=== PATIENT | female | born 1975 | race Caucasian/White ===

== ENCOUNTER → 2018-03-26 07:08 | Outpatient (CLI) | payer OTHER, SELFPAY ==
--- NOTE | 2018-03-26 | DI.US.S_ITS ---
PROCEDURE: US PELVIC COMPLETE INDICATIONS: DUB TECHNIQUE: Real-time scanning was performed of the pelvic organs, with image documentation. Additional endovaginal scanning was necessary due to incomplete visualization of the adnexal and endometrial structures by transabdominal scanning. COMPARISON: Located Within [facility], , PELVIC COMPLETE, 05/31/2015, 15:27. FINDINGS: Transabdominal scanning: Limited scanning through the kidneys shows no hydronephrosis. No pathologic free abdominal or pelvic fluid. Endovaginal scanning: Uterus: Uterus is normal in size at 12.3 x 6.1 x 6.5 cm. The endometrium measures 12.2 mm in combined thickness. 2 intramural fibroids present largest measuring 4.3 x 3.2 x 4.7 and a smaller 3.4 x 3.1 x 4.0 cm Ovaries: Normal ovaries bilaterally. No adnexal masses. IMPRESSION: 1. Increase in size of intramural fibroids largest measuring up to 4.7 cm. Previously visualized endometrial focus not seen on today's examination. 2. Normal ovaries. Dictated by: Miyk MARQUEZ Interpreted: Willie Isabel MD on 03/26/2018 at 8:59 Approved by: Sony Isabel M.D. on 03/26/2018 at 16:37
== END ==
PROVIDERS: Family Provider Family Medicine; PCP Family Medicine; Visit Provider Family Medicine
DX: N93.8 Other specified abnormal uterine and vaginal bleeding (principal); D25.1 Intramural leiomyoma of uterus
CPT/HCPCS: 76856

== ENCOUNTER → 2018-08-24 09:35 | Outpatient (CLI) | payer OTHER, SELFPAY ==
--- NOTE | 2018-08-24 | DI.MRI.S_ITS ---
PROCEDURE: MR PELVIS WO/W CON INDICATIONS: UTERINE FIBROIDS TECHNIQUE: Coronal HASTE, sagittal breath-hold T2 FSE; axial T1 FSE with and without fat saturation through the pelvis. Optional long- and short-axis uterine nonbreath-hold T2 FSE through the uterus. Sagittal or axial dynamic VIBE during administration of contrast. Post-contrast axial or coronal VIBE/2-D FLASH with fat saturation from the iliac crests to the symphysis. Optional diffusion weighted imaging and ADC may be performed. COMPARISON: [facility], US, US PELVIC COMPLETE, 03/26/2018, 7:24. [facility], US, PELVIC COMPLETE, 05/31/2015, 15:27. [facility], CR, L-SPINE 2-3 VIEWS, 12/05/2014, 16:19. FINDINGS: Image quality: Excellent. Uterus: Uterus is normal in size, anteverted. Endometrium is normal in thickness. Junctional zone is normal in thickness at 12 mm or less. Note is made of a fundal fibroid measuring up to 3.3 cm AP, 4.2 cm transverse and 3.3 cm craniocaudad. This is partially exophytic, and correlates with the prior most recent ultrasound without interval enlargement. Its measurements are slightly less than on the comparison ultrasound. A second submucosal fibroid is seen on the right, measuring up to 2.4 cm AP, 2.1 cm transverse and 2.2 cm craniocaudad. The endometrial lining shows no sign of mass, no endometrial fluid collection is seen. Several nabothian cysts are seen at the cervix. Adnexa: Both ovaries are normal in size, without suspicious cystic or solid lesions. Urinary system: Bladder wall is normal in thickness. Distal ureters are non distended. Urethra appears normal in morphology. Nodes and vessels: No pelvic or inguinal adenopathy by size criteria. Iliac vessels are normal in size. Bowel and peritoneum: No pathologic free pelvic fluid. Inferior colon and small bowel loops are normal in caliber. Soft tissues: No inguinal hernias. No findings of pelvic floor incompetence in the absence of provocation. Bones: Marrow demonstrates normal overall signal. IMPRESSION: The uterus is anteverted in the fundal fibroid is therefore quite anteriorly directed towards the midline abdominal wall. This may be palpable on physical examination. This fibroid and a smaller more inferior submucosal fibroid have not enlarged in size from reference to the prior most recent ultrasound scanning 03/26/18. No ovarian mass is present, and there is no evidence for presence of endometrioma or abnormal inflammation throughout the peritoneal space. No suspicion for underlying infection or malignant neoplasm. Dictated by: Forest Dang M.D. on 08/24/2018 at 12:58 Approved by: Forest Dang M.D. on 08/24/2018 at 13:05
== END ==
PROVIDERS: Family Provider Family Medicine; PCP Family Medicine; Visit Provider Family Medicine
DX: D25.0 Submucous leiomyoma of uterus (principal); D25.9 Leiomyoma of uterus, unspecified; N88.8 Other specified noninflammatory disorders of cervix uteri
CPT/HCPCS: 72197

== ENCOUNTER 2018-10-21 13:17 | Emergency (ER) | payer OTHER, SELFPAY ==
[2018-10-21 13:27] VITALS: BP 160/104; PULSE 95; RESP 20; TEMP 36.6; O2SAT 99; BMI 22.4
--- NOTE | 2018-10-21 15:12 | ED.FEMALEGU ---
HPI - Female Genitourinary <APOLLO Fish - Last Filed: 10/21/18 22:18> General Chief complaint: OB/Uterine Contractions Stated complaint: Abdominal pain Time Seen by Provider: 10/21/18 15:12 Source: patient Mode of arrival: ambulatory Limitations: no limitations History of Present Illness HPI Narrative: [age] year old female with history of uterine fibroids here for complaint of pelvic pain. She is currently awaiting as surgery for hysterectomy due to the fibroids with Dr. Turner. She reports she had. Earlier today when she was standing that she had worsening pain that lasted for about 2 min she states was pretty sharp. This pain reduced to her normal level of pelvic pain she states she does have some vaginal bleeding she reports her last menstrual. Was approximately 25 September. She denies any trauma to the abdomen. No urinary symptoms. No fevers no chills. She denies any stressors or relievers of her discomfort. MD Complaint: pelvic pain Related Data Home Medications Medication Instructions Recorded Confirmed ascorbic acid (vitamin C) 500 mg mg PO cap 04/01/18 09/29/18 capsule cetirizine 10 mg capsule 10 mg PO DAILY 04/01/18 09/29/18 cholecalciferol (vitamin D3) 1,000 1,000 unit PO DAILY 04/01/18 09/29/18 unit capsule multivitamin tablet 1 tab PO DAILY 04/01/18 09/29/18 estradiol [Yuvafem] 1 applic VAGINAL DIRECTED 10/21/18 10/21/18 sodium fluoride-pot nitrate 1 applic DENTAL DIRECTED 10/21/18 10/21/18 [Prevident 5000 Enamel Protect] Previous Rx's Medication Instructions Recorded oxycodone-acetaminophen 5 mg-325 1 tab PO Q4-6H PRN #30 tab 09/29/18 mg tablet ondansetron 4 mg PO BID-TID PRN #12 tab 10/21/18 Allergies Allergy/AdvReac Type Severity Reaction Status Date / Time No Known Drug Allergies Allergy Verified 09/29/18 14:50 Review of Systems <APOLLO Fsih - Last Filed: 10/21/18 22:18> Constitutional Denies chills, Denies fatigue, Denies fever(s), Denies lethargy and Denies weakness Eyes Denies change in vision, Denies eye discharge, Denies irritation and Denies loss of vision ENT Ears, Nose, Mouth, and Throat: Denies change in voice, Denies neck pain and Denies sore throat Cardiovascular Denies dyspnea and Denies dyspnea on exertion Respiratory Denies cough, Denies dyspnea, Denies dyspnea on exertion and Denies wheezing Gastrointestinal Gastrointestinal: Denies abdominal pain, Denies change in bowel habits, Denies diarrhea, Denies nausea and Denies vomiting Genitourinary Comments: Continued pelvic pain Musculoskeletal Denies neck pain Integumentary/Breasts Denies pruritus, Denies erythema, Denies rash and Denies wounds Neurologic Denies confusion, Denies loss of vision and Denies weakness Psychiatric Denies anxiety, Denies confusion, Denies depression, Denies homicidal ideation and Denies suicidal ideation Endocrine Denies fatigue and Denies flushing Hematologic/Lymphatic Denies easy bruising Allergic/Immunologic Denies wheezing Exam <APOLLO Fish - Last Filed: 10/21/18 22:18> Initial Vital Signs Initial Vital Signs: Vital Signs Temperature 97.8 F 10/21/18 13:27 Pulse Rate 95 H 10/21/18 13:27 Respiratory Rate 20 10/21/18 13:27 Blood Pressure 160/104 H 10/21/18 13:27 Pulse Oximetry 99 10/21/18 13:27 Const General: cooperative and well developed Nutritional Appearance: well nourished Orientation: alert, awake, oriented x3 and not confused [facility] [place] Mouth: oral mucosae normal and moist mucous membranes Eyes Conjunctivae: conjunctivae normal Sclera: sclerae normal Pupils: PERRL EOM: EOM intact bilaterally Chest Chest: normal inspection of the chest Resp Effort & Inspection: normal respiratory effort, able to speak in complete sentences, no respiratory distress and no use of accessory muscles Auscultation: clear to auscultation bilaterally, no rales, no rhonchi and no wheezes Cardio Rate: regular rate Rhythm: regular rhythm Heart Sounds: no click, no gallops, no murmurs and no rubs Pulses: normal peripheral pulses GI Inspection: non-distended Palpation: soft, no hepatosplenomegaly, No guarding, No pulsatile mass and tender (Tenderness to bilateral pelvic region) Auscultation: normal bowel sounds General: No CVA tenderness Skin General: no rashes or lesions noted, No jaundice and No petechiae Neuro General: alert, oriented x3, gait normal and no focal motor deficits Speech: speech normal <Berta Greco DO - Last Filed: 10/24/18 09:14> Initial Vital Signs Initial Vital Signs: Vital Signs Temperature 97.8 F 10/21/18 13:27 Pulse Rate 95 H 10/21/18 13:27 Respiratory Rate 20 10/21/18 13:27 Blood Pressure 160/104 H 10/21/18 13:27 Pulse Oximetry 99 10/21/18 13:27 Course <APOLLO Fish - Last Filed: 10/21/18 22:18> Orders Ordered: Discontinued Medications Hydromorphone HCl (Dilaudid) 0.5 mg IV NOW ONE Stop: 10/21/18 15:43 Last Admin: 10/21/18 16:03 Dose: 0.5 mg Sodium Chloride (Normal Saline 0.9%) 1,000 mls @ 1,000 mls/hr IV BOLUS ONE Stop: 10/21/18 16:41 Last Infusion: 10/21/18 17:20 Dose: 0 mls/hr Admin: 10/21/18 16:07 Dose: 1,000 mls/hr Ondansetron HCl (Zofran) 4 mg IV NOW ONE Stop: 10/21/18 15:43 Last Admin: 10/21/18 16:01 Dose: 4 mg Vital Signs - 8 hr 10/21/18 17:19 10/21/18 18:42 Temperature 98.1 F Pulse Rate 77 97 H Respiratory Rate 20 18 Blood Pressure 133/83 Blood Pressure [Right Arm] 124/71 Pulse Oximetry 100 98 <Berta Greco DO - Last Filed: 10/24/18 09:14> Orders Ordered: Discontinued Medications Hydromorphone HCl (Dilaudid) 0.5 mg IV NOW ONE Stop: 10/21/18 15:43 Last Admin: 10/21/18 16:03 Dose: 0.5 mg Sodium Chloride (Normal Saline 0.9%) 1,000 mls @ 1,000 mls/hr IV BOLUS ONE Stop: 10/21/18 16:41 Last Infusion: 10/21/18 17:20 Dose: 0 mls/hr Admin: 10/21/18 16:07 Dose: 1,000 mls/hr Ondansetron HCl (Zofran) 4 mg IV NOW ONE Stop: 10/21/18 15:43 Last Admin: 10/21/18 16:01 Dose: 4 mg Vital Signs - 8 hr 10/21/18 17:19 10/21/18 18:42 Temperature 98.1 F Pulse Rate 77 97 H Respiratory Rate 20 18 Blood Pressure 133/83 Blood Pressure [Right Arm] 124/71 Pulse Oximetry 100 98 MDM - Female Genitourinary <APOLLO Fish - Last Filed: 10/21/18 22:18> Lab Data Result diagrams: 10/21/18 15:37 10/21/18 15:37 Lab Results 10/21/18 10/21/18 Range/Units 15:37 15:37 WBC 8.6 (4.5-11.0) X10^3/uL RBC 4.74 (4.0-5.2) X10^6/uL Hgb 14.6 (12.0-16.0) g/dL Hct 42.3 (36-46) % MCV 89.2 (80-100) fL MCH 30.8 (26-34) PG MCHC 34.5 (30-36) % RDW 12.7 (11.6-14.8) % Plt Count 232 (150-400) X10^3/uL Neut % (Auto) 68.2 (50-75) % Lymph % (Auto) 25.0 (25-40) % [place] % (Auto) 3.8 (3-14) % Eos % (Auto) 1.8 L (2-4) % Baso % (Auto) 1.2 (0-2) % Neut # (Auto) 5800 (3481-2225) /uL Sodium 143 (137-145) mmol/L Potassium 3.8 (3.4-5.1) mmol/L Chloride 107 (98-107) mmol/L Carbon Dioxide 21 L (22-32) mmol/L BUN 18 H (7-17) mg/dL Creatinine 0.70 (0.52-1.04) mg/dL Estimated GFR > 60.0 (>60) mL/min BUN/Creatinine Ratio 25.7 H (6-22) Glucose 90 (70-100) mg/dL Calcium 9.5 (8.4-10.2) mg/dL Total Bilirubin 0.5 (0.2-1.3) mg/dL AST 22 (14-36) IU/L ALT 31 (9-52) IU/L Alkaline Phosphatase 49 (38-126) U/L Total Protein 7.9 (6.3-8.2) g/dL Albumin 4.9 (3.5-5.0) g/dL Globulin 3.0 (1.7-4.1) g/dL Albumin/Globulin Ratio 1.6 (1.0-2.8) Lipase 99 (23-300) U/L Point of Care Testing Test Results Negative Urine Dip Bedside Urine Glucose Negative Bedside Urine Bilirubin - Negative Bedside Urine Ketone - Negative Urine Specific [place] 1.015 Bedside Urine Occult Blood +/- Bedside Urine pH 6.0 Bedside Urine Protein - Negative Bedside Urine Urobilinogen - Negative Bedside Urine Nitrite - Negative Bedside Urine Leukocytes - Negative Esterase Imaging Data pelvic us: Radiologist's impression: [address] [address] Ultrasound Report Signed Patient: Maricel Johnson MR#: [id number] : 1975 Acct:[id number] Age/Sex: 43 / F Date of Service: 10/21/18 Loc: ED Accession Number: [id number] Procedure: US pelvic complete Ordering Provider: Derek Kinney PROCEDURE: US PELVIC COMPLETE INDICATIONS: Bilateral pelvic pain TECHNIQUE: Real-time scanning was performed of the pelvic organs, with image documentation. Additional endovaginal scanning was necessary due to incomplete visualization of the adnexal and endometrial structures by transabdominal scanning. COMPARISON: [facility], , MR PELVIS WO/W CON, 08/24/2018, 10:25. [facility], US PELVIC COMPLETE, 09/29/2018, 15:43. [facility], US PELVIC COMPLETE, 03/26/2018, 7:24. FINDINGS: Transabdominal scanning: Limited scanning through the kidneys shows no hydronephrosis. No pathologic free abdominal or pelvic fluid. Endovaginal scanning: Uterus: Uterus is anteverted and enlarged measuring 15.3 x 5.0 x 9.5 cm. The endometrium measures 7 mm in combined thickness. There is a focal infiltrate 3.6 x 5.5 cm intramural fibroid in the superior fundus anterior and midline. There is a 2.5 x 1.8 x 2.3 cm intramural fibroid in the right anterior uterine segment. Ovaries: Right ovary measures 3.4 x 1.7 x 2.7 cm. Left ovary measures 3.0 x 1.7 x 2.7 cm. On Doppler ultrasound, there is no definitive flow to the right ovary. There is normal left artery to the left ovary. IMPRESSION: 1. Right ovary is normal in size and echotexture. On Doppler ultrasound, vascularity cannot be definitively identified in the right ovary. Cannot rule out right ovarian torsion. 2. Left ovary is normal. 3. Myomatous uterus with 2 intramural uterine fibroids. The result was discussed with Derek Kinney in ER on 10/21/2018a at 1750 hours. Dictated by: Molina Salgado M.D. on 10/21/2018 at 17:28 Approved by: Molina Salgado M.D. on 10/21/2018 at 18:12 MDM Narrative Medical decision making narrative: Pelvic ultrasound was obtained and shows fibroids to the uterine area. Blood flow was not seen into the right ovary however ovary was not enlarged. Discussed case with Dr. Turner who does feel that this is not ovarian torsion due to over a not being enlarged feels that this is continued pain due to the uterine fibroid. She will follow up with patient. Dr. Turner is trying to move his surgery scheduled up. Currently prescribed pain management regimen as needed for discomfort. Follow with solar hot water installer as scheduled. For any worsening symptoms return emergency room. <Berta Greco, - Last Filed: 10/24/18 09:14> Lab Data Lab Results 10/21/18 10/21/18 Range/Units 15:37 15:37 WBC 8.6 (4.5-11.0) X10^3/uL RBC 4.74 (4.0-5.2) X10^6/uL Hgb 14.6 (12.0-16.0) g/dL Hct 42.3 (36-46) % MCV 89.2 (80-100) fL MCH 30.8 (26-34) PG MCHC 34.5 (30-36) % RDW 12.7 (11.6-14.8) % Plt Count 232 (150-400) X10^3/uL Neut % (Auto) 68.2 (50-75) % Lymph % (Auto) 25.0 (25-40) % [place] % (Auto) 3.8 (3-14) % Eos % (Auto) 1.8 L (2-4) % Baso % (Auto) 1.2 (0-2) % Neut # (Auto) 5800 (9641-8318) /uL Sodium 143 (137-145) mmol/L Potassium 3.8 (3.4-5.1) mmol/L Chloride 107 (98-107) mmol/L Carbon Dioxide 21 L (22-32) mmol/L BUN 18 H (7-17) mg/dL Creatinine 0.70 (0.52-1.04) mg/dL Estimated GFR > 60.0 (>60) mL/min BUN/Creatinine Ratio 25.7 H (6-22) Glucose 90 (70-100) mg/dL Calcium 9.5 (8.4-10.2) mg/dL Total Bilirubin 0.5 (0.2-1.3) mg/dL AST 22 (14-36) IU/L ALT 31 (9-52) IU/L Alkaline Phosphatase 49 (38-126) U/L Total Protein 7.9 (6.3-8.2) g/dL Albumin 4.9 (3.5-5.0) g/dL Globulin 3.0 (1.7-4.1) g/dL Albumin/Globulin Ratio 1.6 (1.0-2.8) Lipase 99 (23-300) U/L Point of Care Testing Test Results Negative Urine Dip Bedside Urine Glucose Negative Bedside Urine Bilirubin - Negative Bedside Urine Ketone - Negative Urine Specific [place] 1.015 Bedside Urine Occult Blood +/- Bedside Urine pH 6.0 Bedside Urine Protein - Negative Bedside Urine Urobilinogen - Negative Bedside Urine Nitrite - Negative Bedside Urine Leukocytes - Negative Esterase Discharge Plan Departure Patient Disposition: Home Clinical Impression: Uterine fibroid Discharge Date/Time: 10/21/18 18:42 Interventions: ED Discharge Assessment Last Done: 10/21/18 18:42 Instructions: DI for Uterine Fibroids Activity Restrictions/Additional Instructions: Laboratory results today were unremarkable. Ultrasound shows uterine fibroids as before. Recommend following up with solar hot water installer as scheduled for surgery. Use currently prescribed pain management regimen as needed for any discomfort. For any worsening symptoms return to the emergency room. Prescriptions: New ondansetron 4 mg tablet,disintegrating 4 mg PO BID-TID PRN (Reason: nausea and vomiting) Qty: 12 RF: 0 No Action multivitamin [Daily Multi-Vitamin] tablet 1 tab PO DAILY RF: 0 cholecalciferol (vitamin D3) 1,000 unit capsule 1,000 unit PO DAILY RF: 0 cetirizine [Zyrtec] 10 mg capsule 10 mg PO DAILY RF: 0 ascorbic acid (vitamin C) 500 mg capsule PO RF: 0 oxycodone-acetaminophen [Percocet] 5-325 mg tablet 1 tab PO Q4-6H PRN (Reason: pain) Qty: 30 RF: 0 sodium fluoride-pot nitrate [Prevident 5000 Enamel Protect] 1.1-5 % paste 1 applic Dental DIRECTED RF: 0 estradiol [Yuvafem] 10 mcg tablet 1 applic Vaginal DIRECTED RF: 0 Referrals: Nataliia Turner MD [Physician] - Jocelin Crooks MD [Primary Care Provider] - <Berta Greco DO - Last Filed: 10/24/18 09:14> Cosign ED Attending Cosignature Attestation: I was immediately available in the department for consultation. This documentation has been reviewed and I agree with assessment and plan. Supervised by Berta Greco DO
--- NOTE | 2018-10-21 15:42 | DI.US.S_ITS ---
PROCEDURE: US PELVIC COMPLETE INDICATIONS: Bilateral pelvic pain TECHNIQUE: Real-time scanning was performed of the pelvic organs, with image documentation. Additional endovaginal scanning was necessary due to incomplete visualization of the adnexal and endometrial structures by transabdominal scanning. COMPARISON: [facility], MR, MR PELVIS WO/W CON, 08/24/2018, 10:25. [facility], US, US PELVIC COMPLETE, 09/29/2018, 15:43. [facility], US, US PELVIC COMPLETE, 03/26/2018, 7:24. FINDINGS: Transabdominal scanning: Limited scanning through the kidneys shows no hydronephrosis. No pathologic free abdominal or pelvic fluid. Endovaginal scanning: Uterus: Uterus is anteverted and enlarged measuring 15.3 x 5.0 x 9.5 cm. The endometrium measures 7 mm in combined thickness. There is a focal infiltrate 3.6 x 5.5 cm intramural fibroid in the superior fundus anterior and midline. There is a 2.5 x 1.8 x 2.3 cm intramural fibroid in the right anterior uterine segment. Ovaries: Right ovary measures 3.4 x 1.7 x 2.7 cm. Left ovary measures 3.0 x 1.7 x 2.7 cm. On Doppler ultrasound, there is no definitive flow to the right ovary. There is normal left artery to the left ovary. IMPRESSION: 1. Right ovary is normal in size and echotexture. On Doppler ultrasound, vascularity cannot be definitively identified in the right ovary. Cannot rule out right ovarian torsion. 2. Left ovary is normal. 3. Myomatous uterus with 2 intramural uterine fibroids. The result was discussed with Derek Kinney in ER on 10/21/2018a at 1750 hours. Dictated by: Molina Salgado M.D. on 10/21/2018 at 17:28 Approved by: Molina Salgado M.D. on 10/21/2018 at 18:12
[2018-10-21 15:48] LABS: Add Manual Diff / Slide Review NO; Basophils Percent Auto 1.2 % (0-2); Eosinophils Percent Auto 1.8 % (2-4); Hematocrit 42.3 % (36-46); Hemoglobin 14.6 g/dL (12.0-16.0); Mean Corpuscular HGB Conc 34.5 % (30-36); Mean Corpuscular Hemoglobin 30.8 PG (26-34); Mean Corpuscular Volume 89.2 fL (80-100); Monocytes Percent Auto 3.8 % (3-14); Neutrophils Absolute Auto 5800 /uL (1500-7000); Neutrophils Percent Auto 68.2 % (50-75); Platelet Count 232 X10^3/uL (150-400); Red Blood Cell Count 4.74 X10^6/uL (4.0-5.2); Red Cell Distribution Width 12.7 % (11.6-14.8); White Blood Cell Count 8.6 X10^3/uL (4.5-11.0)
[2018-10-21 15:55] LABS: Alanine Aminotransferase 31 IU/L (9-52); Albumin 4.9 g/dL (3.5-5.0); Albumin Globulin Ratio 1.6 (1.0-2.8); Alkaline Phosphatase 49 U/L (38-126); Aspartate Aminotransferase 22 IU/L (14-36); BUN Creatinine Ratio 25.7 (6-22); Bilirubin Total 0.5 mg/dL (0.2-1.3); Blood Urea Nitrogen 18 mg/dL (7-17); Calcium 9.5 mg/dL (8.4-10.2); Carbon Dioxide 21 mmol/L (22-32); Chloride 107 mmol/L (98-107); Estimated Glomerular Filt Rate > 60.0 mL/min (>60); Glucose 90 mg/dL (70-100); HEMOLYSIS 18 (0-50); Lipase 99 U/L (23-300); Potassium 3.8 mmol/L (3.4-5.1); Sodium 143 mmol/L (137-145); Total Protein 7.9 g/dL (6.3-8.2)
[2018-10-21] MEDS: ONDANSETRON 4 MG/2 ML INJ IV (16:01)
[2018-10-21] MEDS: HYDROMORPHONE 1 MG INJ 0.5 MG IV (16:03)
[2018-10-21] MEDS: SODIUM CHLORIDE 0.9% 1,000 ML 1000 ML IV (16:07)
[2018-10-21 17:19] VITALS: BP 124/71; PULSE 77; RESP 20; O2SAT 100
--- NOTE | 2018-10-21 18:25 | ED_ITS ---
HPI - Female Genitourinary <APOLLO Fish - Last Filed: 10/21/18 22:18> General Chief complaint: OB/Uterine Contractions Stated complaint: Abdominal pain Time Seen by Provider: 10/21/18 15:12 Source: patient Mode of arrival: ambulatory Limitations: no limitations History of Present Illness HPI Narrative: [age] year old female with history of uterine fibroids here for complaint of pelvic pain. She is currently awaiting as surgery for hysterectomy due to the fibroids with Dr. Turner. She reports she had. Earlier today when she was standing that she had worsening pain that lasted for about 2 min she states was pretty sharp. This pain reduced to her normal level of pelvic pain she states she does have some vaginal bleeding she reports her last menstrual. Was approximately 25 September. She denies any trauma to the abdomen. No urinary symptoms. No fevers no chills. She denies any stressors or relievers of her discomfort. MD Complaint: pelvic pain Related Data Home Medications Medication Instructions Recorded Confirmed ascorbic acid (vitamin C) 500 mg mg PO cap 04/01/18 09/29/18 capsule cetirizine 10 mg capsule 10 mg PO DAILY 04/01/18 09/29/18 cholecalciferol (vitamin D3) 1,000 1,000 unit PO DAILY 04/01/18 09/29/18 unit capsule multivitamin tablet 1 tab PO DAILY 04/01/18 09/29/18 estradiol [Yuvafem] 1 applic VAGINAL DIRECTED 10/21/18 10/21/18 sodium fluoride-pot nitrate 1 applic DENTAL DIRECTED 10/21/18 10/21/18 [Prevident 5000 Enamel Protect] Previous Rx's Medication Instructions Recorded oxycodone-acetaminophen 5 mg-325 1 tab PO Q4-6H PRN #30 tab 09/29/18 mg tablet ondansetron 4 mg PO BID-TID PRN #12 tab 10/21/18 Allergies Allergy/AdvReac Type Severity Reaction Status Date / Time No Known Drug Allergies Allergy Verified 09/29/18 14:50 Review of Systems <APOLLO Fish - Last Filed: 10/21/18 22:18> Constitutional Denies chills, Denies fatigue, Denies fever(s), Denies lethargy and Denies weakness Eyes Denies change in vision, Denies eye discharge, Denies irritation and Denies loss of vision ENT Ears, Nose, Mouth, and Throat: Denies change in voice, Denies neck pain and Denies sore throat Cardiovascular Denies dyspnea and Denies dyspnea on exertion Respiratory Denies cough, Denies dyspnea, Denies dyspnea on exertion and Denies wheezing Gastrointestinal Gastrointestinal: Denies abdominal pain, Denies change in bowel habits, Denies diarrhea, Denies nausea and Denies vomiting Genitourinary Comments: Continued pelvic pain Musculoskeletal Denies neck pain Integumentary/Breasts Denies pruritus, Denies erythema, Denies rash and Denies wounds Neurologic Denies confusion, Denies loss of vision and Denies weakness Psychiatric Denies anxiety, Denies confusion, Denies depression, Denies homicidal ideation and Denies suicidal ideation Endocrine Denies fatigue and Denies flushing Hematologic/Lymphatic Denies easy bruising Allergic/Immunologic Denies wheezing Exam <APOLLO Fish - Last Filed: 10/21/18 22:18> Initial Vital Signs Initial Vital Signs: Vital Signs Temperature 97.8 F 10/21/18 13:27 Pulse Rate 95 H 10/21/18 13:27 Respiratory Rate 20 10/21/18 13:27 Blood Pressure 160/104 H 10/21/18 13:27 Pulse Oximetry 99 10/21/18 13:27 Const General: cooperative and well developed Nutritional Appearance: well nourished Orientation: alert, awake, oriented x3 and not confused [facility] Mouth: oral mucosae normal and moist mucous membranes Eyes Conjunctivae: conjunctivae normal Sclera: sclerae normal Pupils: PERRL EOM: EOM intact bilaterally Chest Chest: normal inspection of the chest Resp Effort & Inspection: normal respiratory effort, able to speak in complete sentences, no respiratory distress and no use of accessory muscles Auscultation: clear to auscultation bilaterally, no rales, no rhonchi and no wheezes Cardio Rate: regular rate Rhythm: regular rhythm Heart Sounds: no click, no gallops, no murmurs and no rubs Pulses: normal peripheral pulses GI Inspection: non-distended Palpation: soft, no hepatosplenomegaly, No guarding, No pulsatile mass and tender (Tenderness to bilateral pelvic region) Auscultation: normal bowel sounds General: No CVA tenderness Skin General: no rashes or lesions noted, No jaundice and No petechiae Neuro General: alert, oriented x3, gait normal and no focal motor deficits Speech: speech normal <Berta Greco DO - Last Filed: 10/24/18 09:14> Initial Vital Signs Initial Vital Signs: Vital Signs Temperature 97.8 F 10/21/18 13:27 Pulse Rate 95 H 10/21/18 13:27 Respiratory Rate 20 10/21/18 13:27 Blood Pressure 160/104 H 10/21/18 13:27 Pulse Oximetry 99 10/21/18 13:27 Course <APOLLO Fish - Last Filed: 10/21/18 22:18> Orders Ordered: Discontinued Medications Hydromorphone HCl (Dilaudid) 0.5 mg IV NOW ONE Stop: 10/21/18 15:43 Last Admin: 10/21/18 16:03 Dose: 0.5 mg Sodium Chloride (Normal Saline 0.9%) 1,000 mls @ 1,000 mls/hr IV BOLUS ONE Stop: 10/21/18 16:41 Last Infusion: 10/21/18 17:20 Dose: 0 mls/hr Admin: 10/21/18 16:07 Dose: 1,000 mls/hr Ondansetron HCl (Zofran) 4 mg IV NOW ONE Stop: 10/21/18 15:43 Last Admin: 10/21/18 16:01 Dose: 4 mg Vital Signs - 8 hr 10/21/18 17:19 10/21/18 18:42 Temperature 98.1 F Pulse Rate 77 97 H Respiratory Rate 20 18 Blood Pressure 133/83 Blood Pressure [Right Arm] 124/71 Pulse Oximetry 100 98 <Berta Greco DO - Last Filed: 10/24/18 09:14> Orders Ordered: Discontinued Medications Hydromorphone HCl (Dilaudid) 0.5 mg IV NOW ONE Stop: 10/21/18 15:43 Last Admin: 10/21/18 16:03 Dose: 0.5 mg Sodium Chloride (Normal Saline 0.9%) 1,000 mls @ 1,000 mls/hr IV BOLUS ONE Stop: 10/21/18 16:41 Last Infusion: 10/21/18 17:20 Dose: 0 mls/hr Admin: 10/21/18 16:07 Dose: 1,000 mls/hr Ondansetron HCl (Zofran) 4 mg IV NOW ONE Stop: 10/21/18 15:43 Last Admin: 10/21/18 16:01 Dose: 4 mg Vital Signs - 8 hr 10/21/18 17:19 10/21/18 18:42 Temperature 98.1 F Pulse Rate 77 97 H Respiratory Rate 20 18 Blood Pressure 133/83 Blood Pressure [Right Arm] 124/71 Pulse Oximetry 100 98 MDM - Female Genitourinary <APOLLO Fish - Last Filed: 10/21/18 22:18> Lab Data Result diagrams: 10/21/18 15:37 10/21/18 15:37 Lab Results 10/21/18 10/21/18 Range/Units 15:37 15:37 WBC 8.6 (4.5-11.0) X10^3/uL RBC 4.74 (4.0-5.2) X10^6/uL Hgb 14.6 (12.0-16.0) g/dL Hct 42.3 (36-46) % MCV 89.2 (80-100) fL MCH 30.8 (26-34) PG MCHC 34.5 (30-36) % RDW 12.7 (11.6-14.8) % Plt Count 232 (150-400) X10^3/uL Neut % (Auto) 68.2 (50-75) % Lymph % (Auto) 25.0 (25-40) % Delta % (Auto) 3.8 (3-14) % Eos % (Auto) 1.8 L (2-4) % Baso % (Auto) 1.2 (0-2) % Neut # (Auto) 5800 (7978-7891) /uL Sodium 143 (137-145) mmol/L Potassium 3.8 (3.4-5.1) mmol/L Chloride 107 (98-107) mmol/L Carbon Dioxide 21 L (22-32) mmol/L BUN 18 H (7-17) mg/dL Creatinine 0.70 (0.52-1.04) mg/dL Estimated GFR > 60.0 (>60) mL/min BUN/Creatinine Ratio 25.7 H (6-22) Glucose 90 (70-100) mg/dL Calcium 9.5 (8.4-10.2) mg/dL Total Bilirubin 0.5 (0.2-1.3) mg/dL AST 22 (14-36) IU/L ALT 31 (9-52) IU/L Alkaline Phosphatase 49 (38-126) U/L Total Protein 7.9 (6.3-8.2) g/dL Albumin 4.9 (3.5-5.0) g/dL Globulin 3.0 (1.7-4.1) g/dL Albumin/Globulin Ratio 1.6 (1.0-2.8) Lipase 99 (23-300) U/L Point of Care Testing Test Results Negative Urine Dip Bedside Urine Glucose Negative Bedside Urine Bilirubin - Negative Bedside Urine Ketone - Negative Urine Specific Schneider 1.015 Bedside Urine Occult Blood +/- Bedside Urine pH 6.0 Bedside Urine Protein - Negative Bedside Urine Urobilinogen - Negative Bedside Urine Nitrite - Negative Bedside Urine Leukocytes - Negative Esterase Imaging Data pelvic us: Radiologist's impression: [address] [address] Ultrasound Report Signed Patient: Maricel Johnson MR#: [id number] : 1975 Acct:[id number] Age/Sex: 43 / F Date of Service: 10/21/18 Loc: ED Accession Number: [id number] Procedure: US pelvic complete Ordering Provider: Derek Kinney PROCEDURE: US PELVIC COMPLETE INDICATIONS: Bilateral pelvic pain TECHNIQUE: Real-time scanning was performed of the pelvic organs, with image documentation. Additional endovaginal scanning was necessary due to incomplete visualization of the adnexal and endometrial structures by transabdominal scanning. COMPARISON: [facility], , MR PELVIS WO/W CON, 08/24/2018, 10:25. [facility], US PELVIC COMPLETE, 09/29/2018, 15:43. [facility], US PELVIC COMPLETE, 03/26/2018, 7:24. FINDINGS: Transabdominal scanning: Limited scanning through the kidneys shows no hydronephrosis. No pathologic free abdominal or pelvic fluid. Endovaginal scanning: Uterus: Uterus is anteverted and enlarged measuring 15.3 x 5.0 x 9.5 cm. The endometrium measures 7 mm in combined thickness. There is a focal infiltrate 3.6 x 5.5 cm intramural fibroid in the superior fundus anterior and midline. There is a 2.5 x 1.8 x 2.3 cm intramural fibroid in the right anterior uterine segment. Ovaries: Right ovary measures 3.4 x 1.7 x 2.7 cm. Left ovary measures 3.0 x 1.7 x 2.7 cm. On Doppler ultrasound, there is no definitive flow to the right ovary. There is normal left artery to the left ovary. IMPRESSION: 1. Right ovary is normal in size and echotexture. On Doppler ultrasound, vascularity cannot be definitively identified in the right ovary. Cannot rule out right ovarian torsion. 2. Left ovary is normal. 3. Myomatous uterus with 2 intramural uterine fibroids. The result was discussed with Derek Kinney in ER on 10/21/2018a at 1750 hours. Dictated by: Molina Salgado M.D. on 10/21/2018 at 17:28 Approved by: Molina Salgado M.D. on 10/21/2018 at 18:12 MDM Narrative Medical decision making narrative: Pelvic ultrasound was obtained and shows fibroids to the uterine area. Blood flow was not seen into the right ovary however ovary was not enlarged. Discussed case with Dr. Turner who does feel that this is not ovarian torsion due to over a not being enlarged feels that this is continued pain due to the uterine fibroid. She will follow up with patient. Dr. Turner is trying to move his surgery scheduled up. Currently prescribed pain management regimen as needed for discomfort. Follow with case checker as scheduled. For any worsening symptoms return emergency room. <Berta Greco, - Last Filed: 10/24/18 09:14> Lab Data Lab Results 10/21/18 10/21/18 Range/Units 15:37 15:37 WBC 8.6 (4.5-11.0) X10^3/uL RBC 4.74 (4.0-5.2) X10^6/uL Hgb 14.6 (12.0-16.0) g/dL Hct 42.3 (36-46) % MCV 89.2 (80-100) fL MCH 30.8 (26-34) PG MCHC 34.5 (30-36) % RDW 12.7 (11.6-14.8) % Plt Count 232 (150-400) X10^3/uL Neut % (Auto) 68.2 (50-75) % Lymph % (Auto) 25.0 (25-40) % Delta % (Auto) 3.8 (3-14) % Eos % (Auto) 1.8 L (2-4) % Baso % (Auto) 1.2 (0-2) % Neut # (Auto) 5800 (0032-6191) /uL Sodium 143 (137-145) mmol/L Potassium 3.8 (3.4-5.1) mmol/L Chloride 107 (98-107) mmol/L Carbon Dioxide 21 L (22-32) mmol/L BUN 18 H (7-17) mg/dL Creatinine 0.70 (0.52-1.04) mg/dL Estimated GFR > 60.0 (>60) mL/min BUN/Creatinine Ratio 25.7 H (6-22) Glucose 90 (70-100) mg/dL Calcium 9.5 (8.4-10.2) mg/dL Total Bilirubin 0.5 (0.2-1.3) mg/dL AST 22 (14-36) IU/L ALT 31 (9-52) IU/L Alkaline Phosphatase 49 (38-126) U/L Total Protein 7.9 (6.3-8.2) g/dL Albumin 4.9 (3.5-5.0) g/dL Globulin 3.0 (1.7-4.1) g/dL Albumin/Globulin Ratio 1.6 (1.0-2.8) Lipase 99 (23-300) U/L Point of Care Testing Test Results Negative Urine Dip Bedside Urine Glucose Negative Bedside Urine Bilirubin - Negative Bedside Urine Ketone - Negative Urine Specific Schneider 1.015 Bedside Urine Occult Blood +/- Bedside Urine pH 6.0 Bedside Urine Protein - Negative Bedside Urine Urobilinogen - Negative Bedside Urine Nitrite - Negative Bedside Urine Leukocytes - Negative Esterase Discharge Plan Departure Patient Disposition: Home Clinical Impression: Uterine fibroid Discharge Date/Time: 10/21/18 18:42 Interventions: ED Discharge Assessment Last Done: 10/21/18 18:42 Instructions: DI for Uterine Fibroids Activity Restrictions/Additional Instructions: Laboratory results today were unremarkable. Ultrasound shows uterine fibroids as before. Recommend following up with case checker as scheduled for surgery. Use currently prescribed pain management regimen as needed for any discomfort. For any worsening symptoms return to the emergency room. Prescriptions: New ondansetron 4 mg tablet,disintegrating 4 mg PO BID-TID PRN (Reason: nausea and vomiting) Qty: 12 RF: 0 No Action multivitamin [Daily Multi-Vitamin] tablet 1 tab PO DAILY RF: 0 cholecalciferol (vitamin D3) 1,000 unit capsule 1,000 unit PO DAILY RF: 0 cetirizine [Zyrtec] 10 mg capsule 10 mg PO DAILY RF: 0 ascorbic acid (vitamin C) 500 mg capsule PO RF: 0 oxycodone-acetaminophen [Percocet] 5-325 mg tablet 1 tab PO Q4-6H PRN (Reason: pain) Qty: 30 RF: 0 sodium fluoride-pot nitrate [Prevident 5000 Enamel Protect] 1.1-5 % paste 1 applic Dental DIRECTED RF: 0 estradiol [Yuvafem] 10 mcg tablet 1 applic Vaginal DIRECTED RF: 0 Referrals: Nataliia Truner MD [Physician] - Jocelin Crooks MD [Primary Care Provider] - <Berta Greco DO - Last Filed: 10/24/18 09:14> Cosign ED Attending Cosignature Attestation: I was immediately available in the department for consultation. This documentation has been reviewed and I agree with assessment and plan. Supervised by Berta Greco DO
[2018-10-21 18:42] VITALS: BP 133/83; PULSE 97; RESP 18; TEMP 36.7; O2SAT 98
== END 2018-10-21 18:42 | disposition home or self-care (01) ==
PROVIDERS: Emergency Provider Nurse Practitioner Family; Family Provider Family Medicine; PCP Family Medicine
DX: D25.9 Leiomyoma of uterus, unspecified (principal)
CPT/HCPCS: 36591; 76830; 76856; 80053; 81003; 81025; 83690; 85025; 96361; 96374; 96375; 99283; 99284; J1170; J2405

== ENCOUNTER 2018-11-09 14:26 | Observation (INO) | payer OTHER, SELFPAY ==
[2018-11-04 09:24] VITALS: BMI 22.6
[2018-11-07 13:22] VITALS: BMI 22.6
[2018-11-08] VITALS (18 sets, daily range): BP systolic 106–147; BP diastolic 68–93; PULSE 82–109; RESP 8–18; TEMP 36.4–37.3; O2SAT 94–100; BMI 22.6
--- NOTE | 2018-11-08 | PATH_ITS ---
[facility] Accession Number: [id number] . 01 Material submitted: . UTERUS AND TUBES . 02 Diagnosis: Uterus And Bilateral Fallopian Tubes, Supracervical Hysterectomy And Bilateral Salpingectomy: Multiple leiomyomata, up to 1.8 cm in greatest dimension. Secretory endometrium with no diagnostic abnormality. Adenomyosis. One fallopian tube with no diagnostic abnormality; please see comment. Negative for malignancy. I11/11/2018 . 02 Comment: Gross examination of the specimen identified two tubular structures which were submitted in block A6 and blocks A7/A8 respectively. The tissue submitted in blocks A7 and A8 show unremarkable fimbriated fallopian tube. The tubal structure submitted in block A6 is comprised of smooth muscle and spiral vessels suggestive of a ligamnet; no tubal epithelium is identified despite numerous deeper levels and a total of 24 cross-sections examined. The gross specimen is re-examined by Dr. Bronson Wall on 11/10/18, and no other tubal structures are identified in the morcellated specimen to submit for histologic evaluation. . 02 Electronically signed: . Bronson Wall MD, PhD, Pathologist NPI- [id number] . 01 Gross description: . Received in formalin, labeled uterus and tubes, is a morcellated uterus (205 grams, 15.5 x 13.0 x 5.5 cm in aggregate) and two apparent segments of fallopian tubes (segment #1: length-1.0 cm, diameter-0.8 cm; segment #2: length-2.5 cm, diameter-0.5 cm) with a possible fimbriae identified on segment #2. The ovaries are absent. The tissue cannot be oriented and the endometrium and myometrium cannot be grossly measured. The parenchyma is rankin and contains multiple solid firm white whorled well-circumscribed homogenous nodules (0.2 x 0.2 x 0.1 cm-1.8 x 1.7 x 1.5 cm) and white whorled tissue (8.0 x 4.5 x 4.3 cm in aggregate). The serosa is rankin smooth and shiny. The fallopian tubes have miranda-pink smooth shiny serosa and rankin unremarkable lumens. Section code: (A1-A5) parenchyma, nodules, white whorled tissue, national account representative; (A6) putative fallopian tube segment #1, trisected, entirely submitted; (A7) fallopian tube segment #2, national account representative serial sections; (A8) fallopian tube segment #2, fimbria, bivalved, entirely submitted. ([id number]) /MRV . 02 Pathologist provided ICD-10: N80.0, D25.9 . 02 CPT . 255250 Performed at: [facility] [address], [place], [place] [id number] MD Nathan Mendenhall MD Phone: [phone] Performed at: 02 [facility] [address] [place], [place] [id number] MD Emeli Frances MD Phone: [phone]
--- NOTE | 2018-11-08 07:40 | PM.PREOP ---
Pre-operative Note Interval Note History & Physical reviewed/Exam performed by Physician: Yes Changes to H&P: No
[2018-11-08] MEDS: LACTATED RINGERS 1,000 ML 100 ML IV ×3 (07:41→22:28)
[2018-11-08] MEDS: CEFAZOLIN 2 GM/100 ML FROZ.PIGGY IV (07:55)
--- NOTE | 2018-11-08 08:34 | SUR.OPER ---
Lithotomy on padded OR bed. Cadott Pad Positioner under torso. Head on pillow, arms padded and tucked at sides. Legs secured in padded yellow fins stirrups.
[2018-11-08] MEDS: BUPIVACAINE 0.5% W/ EPI (PF) VIAL 30 ML INJ (08:59)
[2018-11-08] MEDS: ROPIVACAINE 0.2% PF 2 MG/ML 10ML AMP 20 ML INJ (09:01)
[2018-11-08] MEDS: HYDROMORPHONE 2 MG INJ 0.5 MG IV ×3 (10:50→11:19)
--- NOTE | 2018-11-08 11:45 | SUR.PHASEI ---
Patient stable post recovery and transferred to inpatient 203. Vital signs stable with97% o2 sat on RA. Abdominal dressings x 3 clean dry and intact. no complaints of pain or nausea on arrival. Bedside report given to Sang Laureano RN. at bedside.
--- NOTE | 2018-11-08 12:29 | PC.NURSE ---
Addendum entered by Nida Laureano R.N. 11/08/18 14:08: pt had c/o feeling nauseated and increased abd pain 5/10 medicated with zofran and toradol. 1409 pt is sleeping at this time, family at bedside. Original Note: Day Shift Pt arrived to floor via bed from PACU report given from Elaine Jung RN. Pt rates pain 4/10 at this time states its tolerable, ice chips and ice water given denies nausea at this time. Lung sounds are clear 96-100 % RA. abdomen is soft tender to touch non distended has 3 Lab sites upper abdomen and one above pubic bone that have gauze and tagaderm that are CDI. Moore cath patient to gravity, ric pad with no noted bleeding. Oriented to room and call light, family at bedside.
[2018-11-08] MEDS: KETOROLAC 30 MG/ML VIAL IV (13:25)
[2018-11-08] MEDS: ONDANSETRON 4 MG/2 ML INJ IV ×2 (13:27→19:15)
[2018-11-08] MEDS: OXYCODONE/ACETAMINOPHEN 5/325 TABLET 2 TAB PO ×2 (15:41→19:15)
[2018-11-08] MEDS: METOCLOPRAMIDE 10 MG/2 ML INJ IV (15:44)
[2018-11-08 17:57] LABS: Add Manual Diff / Slide Review NO; Basophils Absolute Auto 0 /uL (0-100); Eosinophils Absolute Auto 0 /uL (0-450); Hematocrit 39.3 % (36-46); Hemoglobin 13.2 g/dL (12.0-16.0); Lymphocytes Absolute Auto 900 /uL (1100-4500); Lymphocytes Percent Auto 5.9 % (25-40); Mean Corpuscular HGB Conc 33.5 % (30-36); Mean Corpuscular Hemoglobin 29.9 PG (26-34); Mean Corpuscular Volume 89.2 fL (80-100); Monocytes Absolute Auto 500 /uL (0-900); Monocytes Percent Auto 2.9 % (3-14); Neutrophils Absolute Auto 14600 /uL (1500-7000); Neutrophils Percent Auto 91.2 % (50-75); Platelet Count 229 X10^3/uL (150-400); Red Blood Cell Count 4.41 X10^6/uL (4.0-5.2); Red Cell Distribution Width 12.1 % (11.6-14.8); White Blood Cell Count 16.1 X10^3/uL (4.5-11.0)
--- NOTE | 2018-11-08 18:21 | PC.NURSE ---
Addendum entered by Mark Jacob R.N. 11/08/18 19:20: PAIN REMAINS UNDER CONTROL WITH PERCOCETS. Original Note: PATIENT WAS STILL HAVING PAIN.AFTER PO PAIN MEDICATIONS ,UPDATED NEW ORDER FOR IVP DILAUDID, PRIOR TO GIVING DOSE PATIENT FEELING BETTER PAIN NOT BAD,IVP HELD FOR NOW
[2018-11-09] MEDS: METOCLOPRAMIDE 10 MG/2 ML INJ IV (00:30)
[2018-11-09] MEDS: KETOROLAC 30 MG/ML VIAL IV ×3 (00:30→12:58)
[2018-11-09 04:00] VITALS: BP 133/85; PULSE 84; RESP 16; TEMP 36.8; O2SAT 99
[2018-11-09] MEDS: OXYCODONE/ACETAMINOPHEN 5/325 TABLET 2 TAB PO (04:38)
[2018-11-09] MEDS: LACTATED RINGERS 1,000 ML 100 ML IV (05:24)
[2018-11-09] MEDS: ONDANSETRON 4 MG/2 ML INJ IV (05:25)
--- NOTE | 2018-11-09 06:37 | PC.NURSE ---
NOC NOTE: Pt had prn toradol and percocet for pain, Pt had prn zofran and reglan for nausea. Minimal po intake due to nausea. IV fluids running at this time. Oscar garcia'd at 0615, small amount of drainage noted on ric-pad.
[2018-11-09 07:25] VITALS: BP 133/89; PULSE 81; RESP 16; TEMP 36.7; O2SAT 100
--- NOTE | 2018-11-09 08:10 | P.OP_ITS ---
Operative Date/Time/Diagnoses Date of procedure: 11/08/18 Time of procedure: 10:15 Pre-op diagnosis: Enlarged fibroid uterus Pelvic pain Symptomatic rectocele Post-op diagnosis: same Procedure: Procedures Operation Date: 11/08/18 07:45 Actual Procedures Side Surgeon p Laparoscopic Supracervical Hysterectomy w/Bilat Salpingectomy Nataliia Turner MD s Colporrhaphy Posterior Colporrhaphy Nataliia Turner MD Indications: Enlarged fibroid uterus Pelvic pain Symptomatic rectocele Surgeon: Nataliia Turner Cushion Spring Assembler: Keaton Bauer Anesthesia Type: General Operative Notes Findings: 16 week size multi fibroid uterus Normal tubes and ovaries Normal liver and gallbladder Normal appendix Third-degree rectocele Closure Type: primary Specimen(s): left tube, right tube and uterus Applied: catheter Estimated blood loss (mL): 50 Blood products transfused: none Procedure in detail: The patient was taken to the operating room where she was placed in the dorsal supine position. After adequate general endotracheal anesthesia was achieved, she was placed in the dorsal lithotomy position, and prepped and draped in the usual sterile fashion. A timeout was performed. A bivalve speculum was placed into the vagina and the anterior lip of the cervix grasped with a single-tooth tenaculum. The cervical os was sequentially dilated until the ZUMI uterine manipulator could pass easily into the endometrial cavity. The single-tooth tenaculum was removed from the anterior lip of the cervix, and the bivalve speculum was removed from the vagina. Attention was then turned to the abdomen where 6 mL of half percent Marcaine with epinephrine were injected in the umbilical fold. A 5 mm incision was made. The Verhees needle was placed into the peritoneal cavity, and its placement confirmed by aspiration and drop test. The Verhees needle was removed. A 5 mm trocar was placed without difficulty. 2 other incisions were made midway between the pubic symphysis and umbilicus after 5 mL of half percent Marcaine with epinephrine were injected. These were 5 mm incisions. Two 5 mm trochars were placed under direct visualization. The right tube was grasped with an atraumatic grasper. Using the plasma kinetic with settings of 40 W the mesosalpinx was cauterized and cut all the way down to the cornua of the uterus. The cornua of the uterus was then grasped with an atraumatic grasper. The utero-ovarian ligaments were cauterized and cut. The round ligament and broad ligament was cauterized and cut with plasma kinetic. Hemostasis was achieved. The bladder flap was created using the plasma kinetic with cautery and cut mcc across. The uterine arteries on the right side were extensively cauterized with plasma kinetic. All of this was repeated on the left side. The remainder of the bladder flap was created using the plasma kinetic, and the bladder taken down off the lower uterine segment and cervix. Using the Linaloop, the cervix was amputated from the uterus 2 cm above the uterosacral ligaments, after the ZUMI uterine manipulator was removed from the uterus. There was a small piece of serosa on the posterior cervix that was removed with the PlasmaKinetic and removed from the abdomen through the suprapubic trocar. There was a small amount of bleeding noted from the posterior edge of the cervix, and this was cauterized for hemostasis. A sponge stick was placed into the vagina. 6 mL of half percent Marcaine with epinephrine were injected above the pubic symphysis. A 12 mm trocar was placed. A large Endobag was placed through the suprapubic trocar and the uterus placed into the Endobag. The trocar was removed. The Jd placed into the endobag. The uterus was hand morcellated in approximately 15 pieces. The Endobag was removed with the Jd from the peritoneal cavity. The pelvis was copiously irrigated with warm normal saline. No bleeding was noted. 20 cc of 0.2% ropivacaine were placed over the pedicles. The instruments were removed from the abdomen. The CO2 was allowed to escape. The suprapubic incision was closed on the fascia with 0 Vicryl. The subcutaneous layer was closed with 3 O Vicryl with 2 simple interrupted sutures. All of the incisions were closed with 4-0 undyed Vicryl in a subcuticular fashion. Steri-Strips, 2 x 2, and op site were placed over the incisions. The moistened sponge stick was removed from the vagina. Allis clamps were placed at the mucocutaneous junction at the introitus. Wide Allis clamps were placed along the midline of the rectocele, approximately 8. 10 cc of 0.5% Marcaine with epinephrine were injected submucosally and between the Allis clamps at the mucocutaneous junction. A triangular piece of tissue was excised between the Allis clamps extending down onto the perineal body. The mucosa was undermined in the midline with Metzenbaum scissors and incised, moving the Allis clamps to the mucosal edges. This was continued all the way to the apex of the rectocele. Using an open moistened Ray-Zulema and a # 10 bllade the underlying fascia was dissected off of the mucosa. The fascia was reapproximated with 0 Vicryl with horizontal mattress sutures. The excess vaginal mucosa was excised. The mucosa was closed with 2 0 Vicryl with simple interrupted sutures including the underlying fascia to close the space. Hemostasis was achieved. 0 Vicryl was used to close the transverse perineal muscle. 2 0 Vicryl was used to close the perineum. 2 0 chromic was used to close the skin with a subcuticular stitch. Hemostasis was achieved. A Betadine moistened vaginal pack was placed into the vagina. Sponge, lap, and instrument counts were correct x2. The patient tolerated the procedure well, and was taken to PACU in stable condition. Complications: none Post-operative Condition: stable Disposition: PACU Plan for aftercare: To acute care after recovery
--- NOTE | 2018-11-09 08:41 | PC.NURSE ---
Addendum entered by Peyton Galvan R.N. 11/09/18 12:01: 1005 patient voided 250cc PVR 20cc. Urine is clear yellow. Original Note: Addendum entered by Peyton Galvan R.N. 11/09/18 11:50: 0915 pt up to void, voided 250cc with PVR 12cc per bladder scanner. Original Note: Addendum entered by Peyton Galvan R.N. 11/09/18 08:50: Kari SEGOVIA at Dr Vora office called for tylenol order and also given PVR amounts. Original Note: Moore removed at 0615, up to bsc at 0750 voided 125cc, with PVR 266cc. Pt Up to void again at 0815 voided 250cc with PVR 45cc.
[2018-11-09] MEDS: ACETAMINOPHEN 325 MG TABLET 650 MG PO (09:13)
[2018-11-09] MEDS: LORATADINE 10 MG TABLET PO (09:14)
[2018-11-09] MEDS: DOCUSATE 250 MG CAPSULE PO (09:14)
[2018-11-09] MEDS: SODIUM CHLORIDE 0.9% FLUSH 10 ML IV (09:15)
[2018-11-09] MEDS: HYDROCODONE/ACET 5/325 TABLET 2 TAB PO ×2 (11:52→15:52)
[2018-11-09 13:25] VITALS: BP 148/88; PULSE 89; RESP 16; TEMP 36.9; O2SAT 97
[2018-11-09 16:10] VITALS: BP 140/93; PULSE 87; RESP 18; TEMP 36.8; O2SAT 98
--- NOTE | 2018-11-09 17:57 | P.DS_ITS ---
History of Present Illness Date Patient Seen: 11/09/18 Time Patient Seen: 18:09 Chief complaint: *OPB* [id number] LSCH/Salpingectomy Narrative: Patient is a 43-year-old who presented on 11/08/2018 for a scheduled laparoscopic supracervical hysterectomy, bilateral salpingectomy, and posterior repair. She underwent these procedures without complication. Her postoperative course was complicated for short time by pain management which was resolved late in the day on postop day # 1. She had some nausea associated with narcotics and this resolved when changed to a different medication. She is tolerating a diet. She was able to void without the catheter without high postvoid residuals. Discharge Providers Date of admission: 11/09/18 14:26 Primary care physician: Jocelin Crooks MD Discharge provider: Nataliia Turner MD Discharge Date: 11/09/18 Summary Discharge Diagnosis: Status post laparoscopic supracervical hysterectomy with bilateral salpingectomy Status post posterior repair Status at Discharge Functional status at discharge: independent ambulation Overall status at discharge: patient is progressing back to baseline Time Spent with Patient Less than 30 minutes Exam Vital Signs (past 8 hours): - 11/09/18 13:25 11/09/18 16:10 Temperature 98.4 F 98.2 F Pulse Rate 89 87 Respiratory Rate 16 18 Blood Pressure 148/88 H 140/93 H Pulse Oximetry 97 98 Oxygen Delivery Method Room Air Narrative Exam Narrative: Generally: Patient walking around in room, no acute distress Lungs: Clear to auscultation bilaterally Cardiovascular: Regular rate and rhythm Abdomen: Soft, flat, good bowel sounds in all 4 quadrants. Incisions: Clean dry and intact with op site Extremities: Negative Homans, no edema Objective Labs Result Diagrams: 11/08/18 17:34 Labs: Laboratory Results - last 24 hr 11/08/18 17:34 WBC 16.1 H RBC 4.41 Hgb 13.2 Hct 39.3 MCV 89.2 MCH 29.9 MCHC 33.5 RDW 12.1 Plt Count 229 Neut % (Auto) 91.2 H Lymph % (Auto) 5.9 L Dillon % (Auto) 2.9 L Eos % (Auto) 0.0 L Baso % (Auto) 0.0 Neut # (Auto) 80959 H Lymph # (Auto) 900 L Dillon # (Auto) 500 Eos # (Auto) 0 Baso # (Auto) 0 Discharge Plan Discharge Plan Patient Disposition: Home Discharge comment: Call with fever, chills, redness or drainage around incisions or bleeding vaginally more than spotty to light Discharge Med Rec/Prescriptions Prescriptions: New hydrocodone-acetaminophen [[place]] 5-325 mg tablet 1 tab PO QID PRN (Reason: post op pain ) Qty: 30 RF: 0 Continue multivitamin [Daily Multi-Vitamin] tablet 1 tab PO DAILY RF: 0 cholecalciferol (vitamin D3) 1,000 unit capsule 5,000 unit PO DAILY RF: 0 cetirizine [Zyrtec] 10 mg capsule 10 mg PO DAILY RF: 0 ascorbic acid (vitamin C) 500 mg capsule 500 mg PO DAILY RF: 0 sodium fluoride-pot nitrate 1.1-5 % paste 1 applic Dental DIRECTED RF: 0 Discontinued oxycodone-acetaminophen [Percocet] 5-325 mg tablet 1 tab PO Q4-6H PRN (Reason: pain) Qty: 30 RF: 0 Follow up/Referrals: Nataliia Turner MD [Physician] - 2 Weeks Jocelin Crooks MD [Primary Care Provider] - Provider Discharge Instructions Diet: Diet as Tolerated Activity: No intercourse Skin/Wound/Dressing Care Report to your healthcare provider any signs of infection, such as:: chills, fever, increased pain, unusual drainage and unusual redness Dressing: Remove outer plastic dressings and guaze after first shower Leave steri strips in place Visit Report/Discharge Packet Instructions: DI for Cystocele and Rectocele Repair, DI for Hysterectomy, Hysterectomy -- Laparoscopic Surgery Stand Alone Forms: Surgery Discharge Visit Report Forms: Congestive Heart Failure, Stroke Signs & Symptoms Discharge Data Primary Care Provider: Jocelin Crooks Attending Provider: Nataliia Turner Admit Date/Time: 11/09/18 14:26 Discharges patient from system. Discharge Date/Time: 11/09/18 18:40 Quality VTE Deep Vein Thrombosis/Pulmonary Embolism Present on Admission: No
== END 2018-11-09 18:40 | disposition home or self-care (01) ==
LOC: OR 15:00
PROVIDERS: Admitting Provider Obstetrics & Gynecology; Family Provider Family Medicine; PCP Family Medicine; Visit Provider Obstetrics & Gynecology
PROC: 0UT94ZL Resection of Uterus, Supracervical, Percutaneous Endoscopic Approach (ICD-10-PCS; CPT 58542; principal; 2018-11-08 07:45)
PROC: (CPT 58542; 2018-11-08 07:45)
DX: D25.9 Leiomyoma of uterus, unspecified (principal); N92.0 Excessive and frequent menstruation with regular cycle; N81.6 Rectocele
CPT/HCPCS: 58542; 57250; 85025; G0378; J0330; J0690; J1100; J1170; J1885; J2405; J2704; J2765; J2795; J3010

== ENCOUNTER → 2019-01-05 16:08 | Outpatient (CLI) | payer OTHER, SELFPAY ==
[2018-11-08 07:17] VITALS: BMI 22.6
--- NOTE | 2019-01-05 16:09 | DI.US.S_ITS ---
PROCEDURE: US ABDOMEN LIMITED INDICATIONS: RIGHT INGUINAL PAIN TECHNIQUE: Real-time focused scanning was performed of the abdomen, with image documentation. COMPARISON: [facility], , US PELVIC COMPLETE, 10/21/2018, 16:56. FINDINGS: Examination is limited secondary to overlying bowel gas. Within these limits, there is a tubular shaped structure within the right groin which appears to be partially compressible which may represent the right internal iliac vein with partial thrombus. No definite additional fluid collections or masses are seen within the right groin and no hernia seen. IMPRESSION: Limited exam secondary to overlying bowel gas demonstrating a tubular structure within the right groin which may represent the right internal iliac vein containing possible intraluminal venous thrombus. Recommend venous protocol pelvic CT with contrast for further assessment. Kay Meier RN given results and recommendations at 1319 hrs. 01/06/2019. Dictated by: Miky MARQUEZ Interpreted: Forest Dang MD on 01/06/2019 at 11:00 Approved by: Victoriano Barreto M.D. on 01/06/2019 at 16:57
--- NOTE | 2019-01-07 09:44 | DI.CT.S_ITS ---
PROCEDURE: CT PELVIS W CON INDICATIONS: Assess for thrombus in iliac vein TECHNIQUE: After the administration of intravenous contrast, 5 mm thick sections acquired from the iliac crests to the symphysis. 5 mm coronal and sagittal reformats were acquired. For radiation dose reduction, the following was used: automated exposure control, adjustment of mA and/or kV according to patient size. COMPARISON: [facility], , PELVIC COMPLETE, 10/21/2018, 16:56. FINDINGS: Image quality: Excellent. Peritoneum and bowel: Bowel loops demonstrate normal wall thickness and caliber. No free fluid or air. Genitourinary: Bladder wall thickness is normal. Patient is status post hysterectomy. There are cystic structures seen in bilateral adnexa and may represent bilateral ovarian cysts measures up to 2 point 2 x 2 centimeter in size on the right side. Nodes and vessels: No iliac, pelvic, or inguinal adenopathy by size criteria. Iliac vessels demonstrate normal size and enhancement. No filling defects are noted within common iliac and internal and external iliac veins bilaterally. Bilateral femoral veins are patent with no filling defects. Bones: No suspicious bony lesions. Miscellaneous: No inguinal hernias. IMPRESSION: #1. No evidence of thrombosis in iliac veins or femoral veins. #2. Prior hysterectomy with suggestion of bilateral ovarian cysts as above. #3. No acute inflammatory process is seen within the pelvis. No free fluid or free air. Dictated by: Gregorio Muñoz M.D. on 01/07/2019 at 10:40 Approved by: Gregorio Muñoz M.D. on 01/07/2019 at 10:44
== END ==
PROVIDERS: Family Provider Family Medicine; PCP Family Medicine; Visit Provider Obstetrics & Gynecology
DX: R10.31 Right lower quadrant pain (principal); R19.09 Other intra-abdominal and pelvic swelling, mass and lump; R93.89 Abnormal findings on diagnostic imaging of other specified body structures; Z90.710 Acquired absence of both cervix and uterus
CPT/HCPCS: 76705

== ENCOUNTER → 2019-01-07 12:00 | Outpatient (CLI) | payer OTHER, SELFPAY ==
[2018-11-08 07:17] VITALS: BMI 22.6
== END ==
PROVIDERS: Family Provider Family Medicine; PCP Family Medicine; Visit Provider Obstetrics & Gynecology
DX: R10.31 Right lower quadrant pain (principal); R19.09 Other intra-abdominal and pelvic swelling, mass and lump; R93.89 Abnormal findings on diagnostic imaging of other specified body structures; Z90.710 Acquired absence of both cervix and uterus
CPT/HCPCS: 72193; Q9967

== ENCOUNTER 2019-05-11 06:31 | Day surgery (SDC) | payer OTHER, SELFPAY ==
[2019-04-07 14:23] VITALS: BMI 22.6
[2019-04-29 11:29] VITALS: BMI 23.9
[2019-05-11] VITALS (7 sets, daily range): BP systolic 118–139; BP diastolic 74–94; PULSE 74–115; RESP 15–18; TEMP 36.3–36.6; O2SAT 98–100; BMI 23.8
--- NOTE | 2019-05-11 | PATH_ITS ---
[facility] Accession Number: [id number] . 01 Material submitted: . back - LIPOMA LEFT BACK . 02 Diagnosis: Specimen Designated Lipoma Left Back: Subcutaneous lipoma, negative for atypia. [facility]/05/13/2019 . 02 Electronically signed: . Rickey Herrera MD, Pathologist NPI- [id number] . 01 Gross description: . Received one formalin-filled container labeled with the patient's name and labeled lipoma left back. The specimen consists of a miranda-rankin, elliptical-shaped portion of skin and soft tissue which measures 3.5 x 2.7 x 1.5 cm. Also received is a piece of yellow-rankin soft tissue which measures 1.0 x 0.8 x 0.6 cm. The specimen is inked blue. Two insurance service representative sections are submitted in two cassettes. (DC:[id number]) /FRR . 02 Pathologist provided ICD-10: D17.1 . 02 CPT . 530030 Performed at: 01 [facility] [address] [id number] MD Nathan Mendenhall MD Phone: [phone] Performed at: 02 [facility] [address] [place], [place] [id number] MD Emeli Frances MD Phone: [phone]
[2019-05-11] MEDS: LACTATED RINGERS 1,000 ML 100 ML IV (06:47)
--- NOTE | 2019-05-11 07:41 | PM.HP.1 ---
History of Present Illness Date Patient Seen: 05/11/19 Time Patient Seen: 07:41 Chief complaint: [id number] Narrative: Pt seen and examened health unchanged since recent clinic visit excisional bx of soft tissue mass on L back Patient History Medical History (Updated 04/29/19 @ 11:35 by Stephanie Metzger RN) Dysmenorrhea (Acute) Menometrorrhagia (Acute) Rectocele (Acute) Surgical History (Updated 04/29/19 @ 11:35 by Stephanie Metzger RN) History of LAVH (Acute) History of colonoscopy (Acute 11/08/18) Family History Mother Hypertension Grandfather Cancer Social History marital status: household members: spouse and children occupational status: employed Smoking Status: Never smoker alcohol intake: current Family & Social History Social History: household members spouse,children Tobacco & Substance use: Smoking Status Never smoker alcohol intake current alcohol intake frequency holiday/special occasion Substance Use Type does not use Meds Home Medications Medication Instructions Recorded Confirmed Type ascorbic acid (vitamin C) 500 mg 500 mg PO DAILY cap 04/01/18 05/11/19 History capsule cetirizine 10 mg capsule 10 mg PO DAILY 04/01/18 05/11/19 History cholecalciferol (vitamin D3) 1,000 5,000 unit PO DAILY 04/01/18 05/11/19 History unit capsule multivitamin tablet 1 tab PO DAILY 04/01/18 05/11/19 History sodium fluoride-pot nitrate 1 applic DENTAL DIRECTED 10/21/18 05/11/19 History Allergies Allergy/AdvReac Type Severity Reaction Status Date / Time No Known Drug Allergies Allergy Verified 05/11/19 07:04 Exam Vital Signs (past 8 hours): - 05/11/19 06:49 Temperature 97.5 F L Pulse Rate 86 Respiratory Rate 15 Blood Pressure 139/94 H Pulse Oximetry 100 Oxygen Delivery Method Room Air
[2019-05-11] MEDS: CEFAZOLIN 2 GM/100 ML FROZ.PIGGY IV (07:50)
[2019-05-11] MEDS: BUPIVACAINE 0.25% W/ EPI 30 ML VIAL INJ (08:23)
--- NOTE | 2019-05-11 09:06 | PM.OP.1 ---
Operative Date/Time/Diagnoses Date of procedure: 05/11/19 Time of procedure: 09:07 Pre-op diagnosis: 4 x 4 cm soft tissue mass of the left back Post-op diagnosis: same Procedure & Clinicians Procedure: Excisional biopsy of 4 x 4 cm soft tissue mass of back Same procedure as scheduled: Yes Surgeon: Artie Mejia Click Yes if Unassisted: Yes Anesthesia Type: General Operative Notes Findings: Benign appearing fatty soft tissue mass of the back Closure Type: primary Specimen(s): other (Fatty soft tissue mass of the back) Estimated Blood Loss (mL): 5 Procedure in detail: Patient was brought to the operating room a time-out was completed. She was intubated without incident. She was prepped and draped in the usual sterile fashion. A transversely oriented 1 x 4 cm elliptical incision was placed centrally over the soft tissue mass which was just to the left of midline overlying the inferior thoracic back. The fatty mass was superficial. As a consequence skin flaps were raised inferior and superiorly to the elliptical incision. The majority of the subcutaneous tissue along these fats was taken with the specimen. Eventually the flaps were raised far enough in all directions to be able to come down on the superior inferior medial lateral aspect of the somewhat incapsulated fatty tumor. At this point the tumor was delivered through the incision and the anterior aspect was dissected off the deep fascia. The area was then copiously irrigated. Several areas of bleed were easily managed with coagulation. Local anesthetic with 0.25% bupivacaine was generously infiltrated into the area. Skin was then closed using 2 layer closure of 2 0 Vicryl deep dermal interrupted layer as well as a 300 monofilament absorbable suture in a subcuticular fashion. Skin glue was applied patient was extubated brought to PACU without incident Complications: none Condition: stable Disposition: PACU Plan for aftercare: Home follow up in office for review of pathology
--- NOTE | 2019-05-11 09:18 | SUR.OPER ---
Prone on padded OR bed, head in foam head support, gel chest rolls, gel pad under knees, pillow under lower legs, toes free of pressure, arms secured on padded arm boards at <90 degrees abduction. Safety belt at thigh.
== END 2019-05-11 10:02 | disposition home or self-care (01) ==
PROVIDERS: PCP Family Medicine; Visit Provider Surgery
PROC: (CPT 21931; principal; 2019-05-11 07:45)
DX: D17.1 Benign lipomatous neoplasm of skin and subcutaneous tissue of trunk (principal)
CPT/HCPCS: 21931; J0690; J1100; J1885; J2250; J2405; J2704; J3010

== ENCOUNTER → 2020-07-30 15:42 | Outpatient (CLI) | payer OTHER, SELFPAY ==
[2019-04-07 14:23] VITALS: BMI 22.6
--- NOTE | 2020-07-30 | DI.US.S_ITS ---
PROCEDURE: US PELVIC COMPLETE INDICATIONS: PELVIC PAIN TECHNIQUE: Real-time scanning was performed of the pelvic organs, with image documentation. Additional endovaginal scanning was necessary due to incomplete visualization of the adnexal and endometrial structures by transabdominal scanning. COMPARISON: [facility], , US PELVIC COMPLETE, 03/08/2019, 9:01. [facility], , US PELVIC COMPLETE, 10/21/2018, 16:56. FINDINGS: Transabdominal scanning: Limited scanning through the kidneys shows no hydronephrosis. No pathologic free abdominal or pelvic fluid. Endovaginal scanning: Uterus: Uterus is surgically absent. Ovaries: The right ovary measures 2.9 x 2.0 x 2.0 cm and the left measures 3.5 x 2.7 x 2.8 cm. There is no suspicion for presence of ovarian torsion. No abnormal free fluid is seen throughout the peritoneal space. IMPRESSION: Prior hysterectomy. The cervix remains and there are several nabothian cysts. No ovarian pathology is found. Dictated by: Forest Dang M.D. on 07/30/2020 at 17:16 Approved by: Forest Dang M.D. on 07/30/2020 at 17:18
== END ==
PROVIDERS: PCP Family Medicine; Referring Provider Family Medicine; Visit Provider Family Medicine
DX: R10.2 Pelvic and perineal pain (principal); N88.8 Other specified noninflammatory disorders of cervix uteri; Z90.711 Acquired absence of uterus with remaining cervical stump
CPT/HCPCS: 76856

== ENCOUNTER → 2020-08-04 10:04 | Outpatient (CLI) | payer OTHER, SELFPAY ==
[2019-04-07 14:23] VITALS: BMI 22.6
--- NOTE | 2020-08-04 | DI.RAD.S_ITS ---
PROCEDURE: XR HIP W PEL IF DONE BILAT 2V INDICATIONS: PELVIC PAIN, LUMBAR RADICULOPATHY TECHNIQUE: AP pelvis with lateral view(s) of both hip(s). COMPARISON: [facility], MR, MR PELVIS WO/W CON, 08/24/2018, 10:25. [facility], CR, XR LUMBAR SPINE 2-3V, 08/04/2020, 9:58. [facility], CT, CT PELVIS W CON, 01/07/2019, 9:54. FINDINGS: Bones: No fractures or dislocations. Pelvic ring appears intact. No suspicious bony lesions. No significant abnormality of the hips can be seen. Soft tissues: The visualized bowel gas pattern is normal. No suspicious soft tissue calcifications. IMPRESSION: Plain film study within normal limits. If it would be helpful for clinical management decision making, please consider a dedicated hip MRI for further evaluation (assuming that there is no contraindication). If there is strong clinical concern for a labral abnormality, this should be performed according to the arthrogram protocol. Dictated by: Dominic Mayo M.D. on 08/04/2020 at 16:25 Approved by: Dominic Mayo M.D. on 08/04/2020 at 16:26
--- NOTE | 2020-08-04 | DI.RAD.S_ITS ---
PROCEDURE: XR LUMBAR SPINE 2-3V INDICATIONS: PELVIC PAIN, LUMBAR RADICULOPATHY TECHNIQUE: 3 views of the lumbar spine were acquired. COMPARISON: [facility], [place], XR HIP W PEL IF DONE BILAT 2V, 08/04/2020, 9:58. [facility], , THORACIC SPINE 3 VIEWS, 12/05/2014, 16:15. [facility], , L-SPINE 2-3 VIEWS, 12/05/2014, 16:19. FINDINGS: Bones: 5 [id number] vertebrae are present. Mild levoconvex scoliotic curvature is noted. No acute appearing vertebral body compression fractures. There is again seen an apparent remote fracture involving the anterior aspect of L1, which is similar to 2015. No suspicious bony lesions. Lower lumbar spine facet arthropathy is seen. The disc heights are relatively well preserved. Soft tissues: Overlying bowel gas pattern is normal. No suspicious soft tissue calcifications. IMPRESSION: Apparent remote fracture seen involving the anterior aspect of L1, which is similar to 2015. Mild levoconvex lumbar scoliotic curvature. Dictated by: Dominic Mayo M.D. on 08/04/2020 at 16:21 Approved by: Dominic Mayo M.D. on 08/04/2020 at 16:24
== END ==
PROVIDERS: PCP Family Medicine; Referring Provider Family Medicine; Visit Provider Family Medicine
DX: R10.2 Pelvic and perineal pain (principal); M54.16 Radiculopathy, lumbar region; M41.86 Other forms of scoliosis, lumbar region
CPT/HCPCS: 72100; 73521

== ENCOUNTER → 2020-08-10 17:34 | Outpatient (CLI) | payer OTHER, SELFPAY ==
[2019-04-07 14:23] VITALS: BMI 22.6
--- NOTE | 2020-08-10 | DI.MRI.S_ITS ---
PROCEDURE: MR LUMBAR SPINE WO CON The degenerative disc disease INDICATIONS: LOW BACK PAIN. BILATERAL HIP PAIN TECHNIQUE: Noncontrast sagittal T1 spin echo and T2 fast echo, sagittal STIR, axial T1 and T2 fast spin echo through the lumbar spine. In cases with scoliosis, additional coronal T2 fast spin echo may be performed. COMPARISON: None. FINDINGS: Image quality: Excellent. Alignment and Curvature: There is normal bony alignment. Bone Marrow: Marrow is of normal overall signal. No acute vertebral body compression fractures. Spinal Cord: Conus medullaris terminates at the T1 level. Visualized cord demonstrates normal signal and size. Paraspinous Soft Tissues: No paravertebral masses. L1-L2: Nzrs-zg-[id number] degenerative disc height reduction and mild disc desiccation. There is a slight posterior midline disc bulge. Facet osteoarthritis is mild but no significant spinal or foraminal stenosis results.. L2-L3: Mild degenerative disc disease as indicated by mild disc desiccation. Minimal disc height reduction is present. The axial imaging shows no significant spinal or foraminal stenosis.. L3-L4: The degenerative disc disease at this level is mild, with mild disc desiccation but no significant disc height reduction. Facet osteoarthritis is moderate, with mild symmetric foraminal stenosis but no significant spinal stenosis is found. L4-L5: The degenerative disc disease at this level is moderately severe, with disc height reduction, disc desiccation, and a posterior moderate broad-based transverse disc bulge. Additionally, there is moderately severe facet osteoarthritis with associated ligamentum flavum hypertrophy symmetric bilaterally resulting in moderate to moderately severe foraminal stenosis symmetric bilaterally and mild concentric spinal stenosis.. L5-S1: The degenerative changes at this level are moderate in severity comprised of moderate disc height reduction and moderate disc desiccation, with mild to moderate facet osteoarthritis but no significant spinal stenosis. Mild foraminal stenosis is present, symmetric. IMPRESSION: A free herniated disc fragment is not seen. The degree of degeneration along the lumbosacral spine becomes more prominent from L4-5 through L5-S1 and is most pronounced at L4-5 where moderately severe foraminal stenosis is present bilaterally but there is only a mild concentric spinal stenosis. No recent compression fracture found. Irregularity at the anterior aspect of the L1 vertebral body appears chronic and potentially may represent evidence of prior focal compression fracture anteriorly at that level. Dictated by: Forest Dang M.D. on 08/13/2020 at 15:13 Approved by: Forest Dang M.D. on 08/13/2020 at 15:19
--- NOTE | 2020-08-10 | DI.MRI.S_ITS ---
PROCEDURE: MR HIPS VINAY WO CON INDICATIONS: Radiculopathy, lumbar region, Bilateral hip pain TECHNIQUE: Noncontrast coronal T1 spin echo and STIR through the bony pelvis. Coronal and axial T2 fast spin echo with fat saturation, sagittal T1 spin echo, and oblique axial T2 fast spin echo with fat saturation through the hip. COMPARISON: None. FINDINGS: Image quality: Excellent. Bones and joints: Bone marrow of the pelvic ring and proximal femurs show normal signal throughout. No intraosseous lesions or fractures. No avascular necrosis of the femoral heads. The visualized lower lumbar spine appears normally aligned. Tendons and ligaments: The gluteus medius and minimus tendons appear intact, without associated muscle atrophy. The nearby proximal iliotibial band also appears intact. The iliopsoas tendon appears intact, without adjacent bursal fluid collections or evidence for impingement syndrome. The origin of the hamstring tendon is intact at the ischial tuberosity, as well as the associated sacrotuberous ligament. The straight and reflected heads of the rectus femoris muscle origin appear intact, as well as the conjoint tendon. The ligamentum teres appears intact where visualized. Labrum and cartilage: The acetabular labrum appears intact in the absence of intra-articular contrast. Cartilage surface of the femoral head appears of normal thickness. The alpha angle of the femur is within normal limits at less than 55 degrees. Soft tissues: Visualized muscles demonstrate normal bulk and internal signal. Quadratus femoris muscle demonstrates no internal edema to suggest ischiofemoral impingement. The proximal sciatic neurovascular bundle appears normal adjacent to the hamstring tendons. No free pelvic fluid. Bladder wall thickness is normal. Genitourinary structures and bowel loops appear normal where visualized. IMPRESSION: No retroperitoneal mass is seen impinging on the lumbar plexus, no hip joint inflammation or trauma is found. There is no evidence of bursitis, bilaterally. A source of bilateral hip pain is not identified. Dictated by: Forest Dang M.D. on 08/13/2020 at 10:42 Approved by: Forest Dang M.D. on 08/13/2020 at 10:44
== END ==
PROVIDERS: PCP Family Medicine; Referring Provider Family Medicine; Visit Provider Family Medicine
DX: M51.16 Intervertebral disc disorders with radiculopathy, lumbar region (principal); M51.17 Intervertebral disc disorders with radiculopathy, lumbosacral region; M48.07 Spinal stenosis, lumbosacral region; M48.061 Spinal stenosis, lumbar region without neurogenic claudication; M25.551 Pain in right hip; M25.552 Pain in left hip; R10.2 Pelvic and perineal pain; M41.86 Other forms of scoliosis, lumbar region
CPT/HCPCS: 72148; 73721

== ENCOUNTER → 2020-10-10 12:28 | Outpatient (CLI) | payer OTHER, SELFPAY ==
[2020-08-27 08:15] VITALS: BMI 22.6
--- NOTE | 2020-10-10 13:20 | DI.CT.S_ITS ---
PROCEDURE: CT ABDOMEN PELVIS W CON INDICATIONS: Right pelvic pain TECHNIQUE: After the administration of oral and intravenous contrast, 5 mm thick sections acquired from the diaphragms to the symphysis. 5 mm thick coronal and sagittal reformats were performed. For radiation dose reduction, the following was used: automated exposure control, adjustment of mA and/or kV according to patient size. COMPARISON: None. FINDINGS: Image quality: Excellent. ABDOMEN: Lung bases: Solid organs: Liver is normal in size and enhancement. The gallbladder is grossly unremarkable. Biliary system is non-dilated. Pancreas enhances normally. Spleen is normal in size and enhancement. No adrenal nodules. Kidneys are normal in size and enhancement, without hydronephrosis. Peritoneum and bowel: Stomach, small bowel, and colon loops are normal in caliber and wall thickness. No free fluid or air. Normal appendix. Nodes and vessels: No retroperitoneal or mesenteric adenopathy. Aorta and inferior vena cava are normal in caliber. Miscellaneous: No ventral hernias. PELVIS: Possible circumferential smooth mural thickening of the bladder. Ring-enhancing 2 cm structure seen within the right adnexal region probably ovarian in nature such as hemorrhagic cyst in the setting of negative test. There is also heterogeneous appearance of the uterus, which is technically nonspecific and could be further assessed with dedicated ultrasound as clinically necessary. Diffuse moderate stool. Miscellaneous: No inguinal hernias or adenopathy. Bones: No vertebral body compression fracture. Chronic deformity of the anterior superior and inferior endplate of L1, suggestive of limbus vertebra and superimposed degenerative changes. Multilevel spondylosis and facet arthropathy. IMPRESSION: Peripherally enhancing 2 cm structure in the right adnexal region, possibly hemorrhagic cyst, in the setting of negative test. Heterogeneous appearance of the uterus. These findings could be further assessed with dedicated pelvic ultrasound and urinalysis data as clinically necessary Normal appearance of the appendix. Dictated by: Viral Menendez M.D. on 10/10/2020 at 15:56 Approved by: Viral Menendez M.D. on 10/10/2020 at 16:03
== END ==
PROVIDERS: PCP Family Medicine; Referring Provider Family Medicine; Visit Provider Family Medicine
DX: R10.2 Pelvic and perineal pain (principal)
CPT/HCPCS: 74177

== ENCOUNTER → 2020-11-28 10:34 | Outpatient (CLI) | payer OTHER, SELFPAY ==
[2020-08-27 08:15] VITALS: BMI 22.6
[2020-11-28 12:31] LABS: Estradiol, Total 163.2 pg/mL
== END ==
PROVIDERS: PCP Family Medicine; Referring Provider Family Medicine; Visit Provider Family Medicine
DX: R10.2 Pelvic and perineal pain (principal); Z87.42 Personal history of other diseases of the female genital tract
CPT/HCPCS: 36415; 82670; 83002; 84443

== ENCOUNTER → 2021-05-07 14:25 | Outpatient (CLI) | payer OTHER, SELFPAY ==
[2020-08-27 08:15] VITALS: BMI 22.6
--- NOTE | 2021-05-07 14:26 | DI.MG.S_ITS ---
BILATERAL DIGITAL SCREENING MAMMOGRAM 3D/2D WITH CAD: 05/07/2021 CLINICAL: Routine screening. Comparison is made to exams dated: 01/14/2018 mammogram and 05/31/2015 mammogram - [facility]. The tissue of both breasts is heterogeneously dense. This may lower the sensitivity of mammography. Current study was also evaluated with a Computer Aided Detection (CAD) system. No significant masses, calcifications, or other findings are seen in either breast. There has been no significant interval change. IMPRESSION: NEGATIVE There is no mammographic evidence of malignancy. A 1 year screening mammogram is recommended. This exam was interpreted at Station ID: [id number]. NOTE: For mammograms, a report in lay terms will be sent to the patient. Approximately 15% of breast malignancies will not be visualized mammographically. In the management of a palpable breast mass, a negative mammogram must not discourage biopsy of a clinically suspicious lesion. Electronically Signed By: Victoriano [email or web address]:05/07/2021 17:03:01 letter sent: Normal Exam ACR BI-RADS Category 1: Negative 3341F
== END ==
PROVIDERS: PCP Family Medicine; Referring Provider Family Medicine; Visit Provider Family Medicine
DX: Z12.31 Encounter for screening mammogram for malignant neoplasm of breast (principal)
CPT/HCPCS: 77063; 77067

== ENCOUNTER → 2022-05-13 12:35 | Outpatient (CLI) | payer OTHER, SELFPAY ==
[2020-08-27 08:15] VITALS: BMI 22.6
--- NOTE | 2022-05-13 12:37 | DI.MG.S_ITS ---
BILATERAL DIGITAL SCREENING MAMMOGRAM 3D/2D WITH CAD: 05/13/2022 Comparison is made to exams dated: 05/07/2021 mammogram, 01/14/2018 mammogram, and 05/31/2015 mammogram - [facility]. The tissue of both breasts is heterogeneously dense. This may lower the sensitivity of mammography. Current study was also evaluated with a Computer Aided Detection (CAD) system. No significant masses, calcifications, or other findings are seen in either breast. There has been no significant interval change. IMPRESSION: NEGATIVE There is no mammographic evidence of malignancy. A 1 year screening mammogram is recommended. Based on the Tyrer Cuzick model (a risk assessment model) the patient's lifetime risk is 10.8% and her 10 year risk is 2.2%. According to the ACR, ACS, and NCCN guidelines, an annual breast MRI exam along with mammogram is recommended if the patient's lifetime risk is 20% or greater. This exam was interpreted at Station ID: [id number]. NOTE: For mammograms, a report in lay terms will be sent to the patient. Approximately 15% of breast malignancies will not be visualized mammographically. In the management of a palpable breast mass, a negative mammogram must not discourage biopsy of a clinically suspicious lesion. Electronically Signed By: Emely hudson/vimal:05/13/2022 13:16:12 letter sent: Normal Exam ACR BI-RADS Category 1: Negative [id number]
== END ==
PROVIDERS: PCP Family Medicine; Referring Provider Family Medicine; Visit Provider Family Medicine
DX: Z12.31 Encounter for screening mammogram for malignant neoplasm of breast (principal)
CPT/HCPCS: 77063; 77067